=== PATIENT | male | born 1995 | race Caucasian/White ===

== ENCOUNTER 2019-07-04 10:20 | Emergency (ER) | payer MEDICAID, SELFPAY ==
[2019-07-04 10:21] VITALS: BP 140/102; PULSE 78; RESP 16; TEMP 36.8; O2SAT 98; BMI 22.2
--- NOTE | 2019-07-04 10:26 | NURSING ---
NO OLD EKGS
--- NOTE | 2019-07-04 10:51 | EKG12_ITS ---
Test Reason : CP Blood Pressure : / mmHG Vent. Rate : 076 BPM Atrial Rate : 076 BPM P-R Int : 130 ms QRS Dur : 088 ms QT Int : 380 ms P-R-T Axes : 036 -12 001 degrees QTc Int : 427 ms Normal sinus rhythm with sinus arrhythmia Left ventricular hypertrophy Consider precordial lead misplacement Consider repeat ECG Abnormal ECG Confirmed by CAROL SHERMAN, LEANDRA ([id number]), editor greeting card KEITH FRANZ ([id number]) on 07/11/2019 3:29:55 PM Referred By: Confirmed By:LEANDRA MEDINA MD
--- NOTE | 2019-07-04 10:51 | RAD_ITS ---
STUDY: X-RAY CHEST REASON FOR EXAM: Male, 24 years old. LEFT SIDE CHEST PAIN TECHNIQUE: Single AP portable view of the chest. COMPARISON: None. FINDINGS: The lungs are clear and expanded. There is no demonstrated pleural abnormality. Normal size heart. Normal mediastinum and estevan. Normal visualized pulmonary arteries. Normal visualized aortic arch and descending thoracic aorta. Normal visualized thoracic spine. Normal visualized ribs, clavicles, and shoulders. There is no demonstrated abnormality of the visualized soft tissue structures of the upper abdomen. RAD/Chest 1 View (Portable) IMPRESSION: Normal x-ray examination of the chest. Electronically Signed: Villa Grimes, at 11:40 EDT Tel , Service support ,
--- NOTE | 2019-07-04 10:58 | ED.VISSUMM ---
- ER Visit Summary Date of Service: 07/04/19 Chief Complaint: Chest pain History of Present Illness: The patient is a 24 M who presents with chest pain that began yesterday while he was at work. Patient states that he went back to work yesterday and had to wear a mask all day. Patient states that while he was wearing the mask he developed chest pain. Patient describes it as a pressure. Patient states it is worse when he wears a mask and when he exerts himself. Patient states he did have some diaphoresis yesterday at work but states it was very hot there. Patient admits to some lightheadedness and palpitations. Patient denies any nausea or vomiting. Patient denies any shortness of breath or cough. Patient denies any fevers or chills. Patient's only cardiac risk factor is smoking. Patient also states he has some pain in his right ear. Patient thinks he has an ear infection and wants to get that checked out while he is here. Physical Examination: Vital signs are stable. Patient is afebrile. Patient is in no acute distress. Oral mucosa is pink and moist. Neck is supple. Trachea is midline. There is no JVD noted. External auditory canals were occluded with cerumen. Heart was regular rate and rhythm. Lungs are clear and equal bilaterally. Abdomen is soft. Bowel sounds are normal. There is no tenderness. There is no rebound or guarding noted. Skin is warm dry. Cranial nerves II through XII are intact. There are no focal motor or sensory deficits noted. Extremities are intact. There is no calf tenderness or edema. Test Results: EKG shows a normal sinus rhythm with a rate of 76. There are no acute ST or T wave changes. CBC shows slight leukocytosis of 13.8. Basic metabolic profile showed a mild hypokalemia of 3.4. Troponin was normal. Portable chest x-ray was obtained. There is no acute cardiopulmonary process. Emergency Department Course and Treatment: Patient was given aspirin here. Patient was feeling better on reevaluation. Patient has a HEART score of 1 and a LG risk score of 0. Patient was advised that this is low risk for acute cardiac event. Patient was instructed to follow-up with his primary care physician for further evaluation. Patient understood and was agreeable with the plan. All questions were answered. Disposition: Discharge home Impression: Chest pain This note was generated with Dragon dictation software. It may contain incorrect words, spelling, and punctuation that were not noted in review of the chart prior to signing ED Disposition - Plan for ED Patient: Disposition: Home or Assisted Living Diagnosis: Chest pain of uncertain etiology Instructions: ED Chest Pain Atypical Unkn Cause Referrals: Care Physician,No Primary [Primary Care Provider] - Samuel Salazar DO [STAFF PHYSICIAN] - 5-7 Days
[2019-07-04 10:59] VITALS: BP 133/67; PULSE 83; RESP 14; TEMP 37.2; O2SAT 100
[2019-07-04 11:09] LABS: Absolute Lymphocyte Count 1.88 X10^3/uL (0.83-4.51); Absolute Neutrophil Count 10.4 X10^3/uL (2.0-7.7); Basophil# 0.04 X10^3/uL; Basophil% 0.3 % (0-1); Eosinophil# 0.08 X10^3/uL; Eosinophils% 0.6 % (0-5); Hematocrit 45.2 % (40-54); Hemoglobin 15.4 g/dL (13.0-16.5); Lymphocyte # 1.88 X10^3/ul (4.0); Lymphocyte % 13.6 % (19-41); Mean Corp Hgb Conc 34.1 g/dL (32-36); Mean Corpuscular Hgb 30.6 pg (27.0-32.0); Mean Corpuscular Volume 89.7 fL (80-94); Mean Platelet Vol. 11.1 fl (6.2-12.0); Monocyte# 1.36 X10^3/uL; Monocyte% 9.9 % (0-10); NRBC Flagged by Analyzer 0 % (0-5); Neutrophil # 10.36 X10^3/uL (2.7-7.7); Platelet Count 242 K/mm3 (150-450); RBC Distribution Width CV 13.7 % (11.6-14.6); RBC Distribution Width SD 45.1 fl (35.1-43.9); Red Blood Count 5.04 M/mm3 (4.6-6.2); White Blood Count 13.8 K/mm3 (4.4-11.0)
[2019-07-04] MEDS: Aspirin 81 MG TAB.CHEW 324 MG PO (11:10)
[2019-07-04 11:25] LABS: Anion Gap 6 (5-15); BUN 8 mg/dL (7-18); BUN/Creat Ratio 12.5 RATIO (10-20); Calcium,Total 9.1 mg/dL (8.5-10.1); Chloride 104 mmol/L (98-107); Creatinine, Serum 0.64 mg/dL (0.70-1.30); EST Glomerular Filtration Rate 160 mL/min (>60); Est Glom Filt Rate - Afr Amer 194 mL/min (>60); Estimated Creatinine Clearance 159.57 ml/min; Glucose 82 mg/dL (74-106); Potassium 3.4 mmol/L (3.5-5.1); Sodium Level 140 mmol/L (136-145)
[2019-07-04 14:20] VITALS: BP 126/78; PULSE 81; RESP 16; O2SAT 99
== END 2019-07-04 14:21 | disposition home or self-care (01) ==
PROVIDERS: Emergency Provider Emergency Medicine
DX: R07.9 Chest pain, unspecified (principal); R42 Dizziness and giddiness; R00.2 Palpitations; H92.01 Otalgia, right ear; R51 Headache; M54.2 Cervicalgia; Z72.0 Tobacco use
CPT/HCPCS: 71045; 80048; 84484; 85025; 93005; 99284; A4216